=== PATIENT | female | born 1950 | race Caucasian/White ===

== ENCOUNTER 2021-01-06 21:13 | Emergency (ER) | payer MEDICARE ==
[~2021-01-06] VITALS: Ht 167.6 cm; Wt 60.3 kg
[~2021-01-06 21:13] MED LIST: ALEN70TA76 PO; ASPI-667 PO; CHOL100012 PEG; LEVO75TA6 PO; ROSU10TA2 PO; TRAM50TA PO; [UNRECOGNIZED DRUG - CODE] PO; [UNRECOGNIZED DRUG - CODE] PO
--- NOTE | 2021-01-06 22:10 | NUR ---
GRACIE AMBULATED TO ROOM. ALERT AND ORIENTED X3. C/O PAIN OF 1 TO RIGHT LOWER BACK. PT STATED, "I HAVE 3 KIDNEYS. 2 ON THE RIGHT AND 1 ON THE LEFT. I HAD RIGHT HIP SURGERY IN NOVEMBER THIS YEAR WITH DR. MCGUIRE. I FEEL LIKE I MIGHT BE GETTING A UTI AND DR. MCGUIRE DOESN'T WANT ME TO GET AN INFECTION OF ANY KIND. I TOOK A CIPRO 250MG AT 5:30PM TODAY. I ONLY HAD ONE."
[2021-01-06 22:14] VITALS: BP 112/51
[2021-01-06 22:33] LABS: BILIRUBIN,URINE NEGATIVE (NEGATIVE); UA COLOR YELLOW; UROBILINOGEN,URINE 0.2 E.U./dL (0.2)
--- NOTE | 2021-01-06 23:10 | ER.PDOC ---
General Chief Complaint: Flank Pain Stated Complaint: R FLANK PAIN,FATIGUE Time seen by MD: 22:30 Source: patient Exam Limitations: no limitations History of Present Illness Initial Comments right pelvic pain Timing/Duration: this morning Severity/Quality: mild, burning Location of Pain: pelvic pain, low back pain Associated Symptoms: denies symptoms Prior symptoms/Treatment: Similar symptoms previous (history of pelvic kidney with recurrent UTI's) Allergies: Coded Allergies: Penicillins (Verified Allergy, Unknown, Rash, 11/03/20) THIS REACTION WAS IN 2ND GRADE. PT HAS HAD ROCEPHIN WITHOUT REACTION. Home Meds Reported Medications Cholecalciferol (Vitamin D3) (Vitamin D3) 25 Mcg (1000 Unit) Capsule, 1 CAP PEG DAILY24 11/03/20 Ascorbic Acid/Multivit-Min (Emergen-C Immune Plus Packet) 1,000 Mg Effpowdpkt, 1000 MG PO DAILY24, TABLET 11/03/20 Multivitamin (MULTIPLE VITAMINS) 1 Each Tablet, 1 TAB PO QD for 30 Days, #30 TAB 0 Refills 11/03/20 Tramadol Hcl (TRAMADOL HCL) 50 Mg Tablet, 1 TAB PO BID PRN for PAIN 4 - 6, #60 TAB 11/03/20 Alendronate Sodium (ALENDRONATE SODIUM) 70 Mg Tablet, 70 MG PO Q7D, TAB 11/03/20 Rosuvastatin 10MG (CRESTOR 10MG) 10 Mg Tablet, 0.5 TAB PO HS, #30 TAB 5 Refills 11/03/20 Levothyroxine Sodium (LEVOTHYROXINE SODIUM) 75 Mcg Tablet, 75 MCG PO DAILY, TABLET 02/10/17 Past Medical History Medical History: high cholesterol, thyroid disease Surgical History: hip Family History Significant Family History: no pertinent family hx Social History Smoking: non-smoker Alcohol Use: none Drug Use: none Review of Systems Constitutional: denies fever EENTM: denies eye pain, denies ear discharge Respiratory: denies cough, denies shortness of breath Cardiovascular: denies chest pain Gastrointestinal: abdominal pain (right plevic pain typical of her usual UTI pain) Genitourinary: burning, frequency, flank pain; denies hematuria Musculoskeletal: back pain (right lower back) Skin: rash Hematologic/Lymphatic: denies easy bruising All Other Systems: Reviewed and Negative Physical Exam General Appearance: No Apparent Distress, WD/WN EENT: eyes nml inspection, nml ENT inspection, pharynx nml Neck: nml inspection, non-tender Cardiovascular/Respiratory: Regular Rate, Rhythm, No M/R/G, Normal Peripheral Pulses, No JVD, Normal Breath Sounds, No Respiratory Distress Abdomen: Normal Bowel Sounds, Non Tender, Soft, No Organomegaly Back: nml inspection Extremities: Normal Range of Motion, Non-Tender, Normal Inspection, No Pedal Edema, No Calf Tenderness, Normal Capillary Refill 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, No Motor/Sensory Deficits, Alert, Normal Mood/Affect, Oriented x 3 Skin: Normal Color, Warm/Dry Results/Orders Results/Orders Orders - ANGEL GRAHAM MD Urinalysis (01/06/21 22:25) Vital Signs Date Time Temp Pulse Resp B/P (MAP) Pulse Ox O2 Delivery O2 Flow Rate FiO2 01/06/21 23:11 78 18 108/62 (77) 97 Room Air 01/06/21 22:14 98.2 82 18 01/06/21 22:14 98.2 82 18 95 01/06/21 22:14 98.2 82 18 112/51 (71) 95 Room Air Laboratory Tests Test 01/06/21 21:25 Urine Collection Type RANDOM Urine Color YELLOW Urine Appearance CLEAR Urine Bilirubin NEGATIVE (NEGATIVE) Urine Ketones NEGATIVE (NEGATIVE) Urine Specific [place] 1.010 (1.005-1.030) Urine pH 6.5 (4.5-8.0) Urine Protein NEGATIVE (NEGATIVE) Urine Urobilinogen 0.2 E.U./dL (0.2) Urine Nitrate NEGATIVE (NEGATIVE) Urine Leukocyte Esterase NEGATIVE (NEGATIVE) Urine Glucose (Auto)(UA) NEGATIVE (NEGATIVE) Urine Blood NEGATIVE (NEGATIVE) Progress Progress UA negative for leukocytes or nitrites here. She states her dip at home was positive. Since she is having symptoms, will write RX for her usual ciprofloxacin and have her follow up with PCM. ER DEPART Departure Time of Disposition: 23:06 Disposition: 01 HOME / SELF CARE / HOMELESS Impression: Primary Impression: Acute cystitis Condition: Stable Referrals: EDWIN HAWKINS MD (PCP) PRIMARY CARE PROVIDER Additional Instructions: Return immediately if worse pain, vomiting, fever. Drink lots of fluids. Ciprofloxacin as prescribed. Pyridium over the counter as needed for urinary discomfort. Follow up PCP 2-3 days. Duration or Time Spent with Pa: 20 min Problem Qualifiers Primary Impression: Acute cystitis Hematuria presence: without hematuria Qualified Codes: N30.00 - Acute cystitis without hematuria ANGEL GRAHAM MD Jan 06, 2021 23:10
[2021-01-06 23:11] VITALS: BP 108/62
== END 2021-01-06 23:15 | disposition home or self-care (01) ==
LOC: ER 21:13
DX: N30.00 Acute cystitis without hematuria (principal); E78.00 Pure hypercholesterolemia, unspecified; Z79.899 Other long term (current) drug therapy; Z88.0 Allergy status to penicillin; Z88.1 Allergy status to other antibiotic agents
CPT/HCPCS: 81003; 99283

== ENCOUNTER → 2021-05-16 | Outpatient (CLI) | payer MEDICARE | END | disposition home or self-care (01) | LOC: LAB 08:57 | PROVIDERS: ATTEND Internal Medicine Cardiovascular Disease | DX: E78.2 Mixed hyperlipidemia (principal) | CPT/HCPCS: 36415; 80061; 80076 ==

== ENCOUNTER → 2022-01-01 | Outpatient (CLI) | payer MEDICARE ==
--- NOTE | 2022-01-01 09:13 | DIREP ---
PROCEDURE:US ABDOMEN LIMITED (SINGLE ORGAN - QUAD) COMPARISON:[facility], CT, CT ABD/PELVIS W/ CONTRAST, 08/29/2020, 12:24 PM. INDICATIONS:ABDOMINAL PAIN, RUQ TECHNIQUE:High resolution sonographic examination was performed of the abdomen. FINDINGS: PANCREAS:Visualized portions of the pancreatic head and body appear unremarkable. The pancreatic tail is obscured by bowel gas shadowing. LIVER:Increased hepatic echotexture consistent with hepatic steatosis. No focal hepatic lesion is identified. Hepatopetal flow in the portal vein. GALLBLADDER:Normal appearing gallbladder without evidence for gallbladder wall thickening or pericholecystic fluid. BILIARY:There is no biliary ductal dilatation. RIGHT KIDNEY:Normal. No hydronephrosis. Duplex-collecting system. OTHER:Negative. No ascites is identified. CBD:0.4 cm GALLBLADDER WALL: 0.2 cm RIGHT KIDNEY: 9.4 x 4.0 x 3.8 cm. CONCLUSION:1. Hepatic steatosis. 2. No acute abnormality noted. 3. Duplicated right renal collecting system. Dictated by: [facility] Physician on 01/01/2022 at 08:58 AM quoc
== END | disposition home or self-care (01) ==
LOC: RAD 07:48
PROVIDERS: ATTEND Internal Medicine Gastroenterology
DX: K76.0 Fatty (change of) liver, not elsewhere classified (principal); R10.11 Right upper quadrant pain; Z86.010 Personal history of colon polyps
CPT/HCPCS: 76705

== ENCOUNTER 2022-06-04 09:42 | Emergency (ER) | payer MEDICARE ==
[~2022-06-04] VITALS: Ht 165.1 cm; Wt 62.6 kg
[2022-06-04 09:57] VITALS: BP 128/80
--- NOTE | 2022-06-04 10:01 | ER.PDOC ---
General Chief Complaint: Requesting Medical Care Stated Complaint: EARACHE/ST/COUGH/CONGESTION Time seen by MD: 09:58 Source: patient Exam Limitations: no limitations History of Present Illness Initial Comments 72 yo F, fully vaccinated against influenza and covid including bivalent booster, has URI symptoms and a sore throat for the past several days. Exposed to Covid in April, caught it, and this resolved without particularly concerning symptoms or sequelae. Has tested herself and her multiple times at home, last negative 06/01/2022. In the intervening days has developed a sore throat and low grade cough, also some upper R back pain with coughing. Timing/Duration: gradual Severity: mild, moderate Associated Symptoms: sore throat, cough Prior symptoms/Treatment: Similar symptoms previous Allergies: Coded Allergies: Penicillins (Verified Allergy, Unknown, Rash, 11/03/20) THIS REACTION WAS IN 2ND GRADE. PT HAS HAD ROCEPHIN WITHOUT REACTION. Home Meds Reported Medications Cholecalciferol (Vitamin D3) (Vitamin D3) 25 Mcg (1000 Unit) Capsule, 1 CAP PEG DAILY24 11/03/20 Ascorbic Acid/Multivit-Min (Emergen-C Immune Plus Packet) 1,000 Mg Effpowdpkt, 1000 MG PO DAILY24, TABLET 11/03/20 Multivitamin (MULTIPLE VITAMINS) 1 Each Tablet, 1 TAB PO QD for 30 Days, #30 TAB 0 Refills 11/03/20 Tramadol Hcl (TRAMADOL HCL) 50 Mg Tablet, 1 TAB PO BID PRN for PAIN 4 - 6, #60 TAB 11/03/20 Alendronate Sodium (ALENDRONATE SODIUM) 70 Mg Tablet, 70 MG PO Q7D, TAB 11/03/20 Rosuvastatin 10MG (CRESTOR 10MG) 10 Mg Tablet, 0.5 TAB PO HS, #30 TAB 5 Refills 11/03/20 Levothyroxine Sodium (LEVOTHYROXINE SODIUM) 75 Mcg Tablet, 75 MCG PO DAILY, TABLET 02/10/17 Constitutional: malaise EENTM: no symptoms reported Respiratory: see HPI, cough Cardiovascular: see HPI, chest pain (more posterior chest wall pain really, R mid to upper back) Gastrointestinal: no symptoms reported Genitourinary: no symptoms reported Musculoskeletal: see HPI Skin: no symptoms reported Psychiatric/Neurological: no symptoms reported Endocrine: no symptoms reported All Other Systems: Reviewed and Negative Past Medical History Medical History: high cholesterol, thyroid disease Surgical History: hip Family History Significant Family History: no pertinent family hx Social History Smoking: non-smoker Drug Use: none Reviewed Nursing Reviewed: Vital Signs, Abn. Noted, Nursing Assessment Physical Exam General Appearance: alert, no distress Eye: eyes nml inspection Ear: ear nml (grossly wnl) Throat: airway nml Neck: supple Respiratory: breath sounds nml Abdomen: non-tender CVS: reg rate & rhythm, heart sounds nml Skin: color nml, no rash Extremities: non-tender NEURO/PSYCH: oriented x 3, motor nml, sensation nml, mood/affect nml Results/Orders Results/Orders Orders - KALEB ROSE MD Cbc With Auto Diff (06/04/22 09:58) Basic Metabolic Panel (06/04/22 09:58) Xr Chest 2v (06/04/22 09:58) Influenza A&B (06/04/22 09:58) Covid19 Antigen Lavonne Jennifer (06/04/22 09:58) PT (06/04/22 10:11) Partial Thromboplastin Time. (06/04/22 10:11) D-Dimer (06/04/22 10:11) Strep Screen (06/04/22 10:11) Cefdinir (Omnicef) (06/04/22 10:40) Cta Chest (06/04/22 10:56) Doxycycline Hyclate (Vibramycin) (06/04/22 11:48) Doxycycline Hyclate (Vibramycin) (06/04/22 11:59) Vital Signs Date Time Temp Pulse Resp B/P (MAP) Pulse Ox O2 Delivery O2 Flow Rate FiO2 06/04/22 09:57 99.3 71 18 06/04/22 09:57 99.3 71 18 128/80 (96) 100 Room Air* 0 21 06/04/22 09:57 99.3 71 18 Administered Medications Medications (Trade) Dose Ordered Sig/Mckenzie Route PRN Reason Start Time Stop Time Status Last Admin Dose Admin Cefdinir (Omnicef) 300 mg STAT STAT PO 06/04/22 10:40 06/04/22 11:20 DC 06/04/22 10:49 300 MG Doxycycline Hyclate (Vibramycin) 100 mg STAT STAT PO 06/04/22 11:48 06/04/22 11:49 DC 06/04/22 12:14 100 MG Laboratory Tests Test 06/04/22 10:09 06/04/22 10:10 White Blood Count 13.8 10^3/uL (4.5-11.0) H Red Blood Count 4.86 10^6/uL (4.00-5.20) Hemoglobin 13.0 g/dL (12.0-15.0) Hematocrit 41.0 % (36.0-46.0) Mean Corpuscular Volume 84.4 fL (78-100) Mean Corpuscular Hemoglobin 26.7 pg (26-34) Mean Corpuscular Hemoglobin Concent 31.7 g/dL (33-36.5) L Red Cell Distribution Width 14.5 % (11.5-14.5) Platelet Count 304 10^3/uL (150-400) Mean Platelet Volume 8.2 fL (7.8-11.0) Neutrophils (%) (Auto) 84.5 % (41.0-85.0) Lymphocytes (%) (Auto) 9.4 % (24.0-44.0) L Monocytes (%) (Auto) 4.7 % (5.0-12.0) L Neutrophils # (Auto) 11.7 10^3/uL (1.8-7.7) H Lymphocytes # (Auto) 1.30 10^3/uL1 (1.0-4.8) Monocytes # (Auto) 0.7 10^3/uL (0.3-0.8) Absolute Immature Granulocyte (auto 0.03 10^3 u/L (0-2) Absolute Eosinophils (auto) 0.1 10^3/uL (0.0-0.2) Immature Granulocytes % 0.20 % (0.00-0.50) Eosinophils % 0.9 % (0.0-5.0) Basophils % 0.3 % (0.0-0.2) H Basophils # 0.0 10^3/uL (0.0-0.1) Prothrombin Time 11.1 SEC (9.1-11.5) Prothrombin Time INR (Non-Therap) 1.1 Activated Partial Thromboplast Time 27.5 SEC (22.5-33.1) D-Dimer 1.54 mg/L (0.19-0.49) *H Sodium Level 136 mmol/L (132-145) Potassium Level 3.6 mmol/L (3.6-5.2) Chloride Level 100.0 mmol/L (96-109) Carbon Dioxide Level 25.3 mmol/L (20.0-32) Glucose Level 123 mg/dL (70-110) H Blood Urea Nitrogen 8 mg/dL (7-18) Creatinine 0.87 mg/dL (0.59-1.40) Calcium Level 8.7 mg/dL (8.4-10.5) Anion Gap 14.3 Estimated GFR () 77.4 (>/=60) Est GFR (CKD-EPI)(Non-Afr Tristanian) 64.0 (>/=60) BUN/Creatinine Ratio 9.0 Influenza Type A Antigen NEGATIVE (NEG) Influenza Type B Antigen NEGATIVE (NEG) SARS-CoV-2 Antigen (Rapid) NEGATIVE (NEGATIVE) Group A Streptococcus Screen NEGATIVE (NEGATIVE) Progress Progress Pneumonia is a little larger on CT than I noted on CXR. I had been minded to give cefdinir; now I am more inclined to add doxycycline as well. It's a mass. I have spoken with pt at some length about need for biopsy and proper followup without unnecessary delay. EKG/XRAY/CT/US XRAY: chest XRAY Comments: RUL pneumonia CT Comments: see results ER DEPART Departure Time of Disposition: 12:44 Disposition: 01 HOME / SELF CARE / HOMELESS Impression: Primary Impression: Mass of right lung Additional Impression: Mass of upper lobe of right lung Condition: Stable Patient Instructions: Lung Cancer Referrals: EDWIN HAWKINS MD (PCP) PRIMARY CARE PROVIDER Additional Instructions: While it is not certain, we are concerned that this lung mass may be cancerous; at the very least, it needs to be biopsied as soon as possible either by an INTERVENTIONAL BUSINESS SOLUTIONS ARCHITECT or THORACIC SURGEON. That information will be essential to further guide your care. There is a small amount of pneumonia as well, for which we have prescribed antibiotics. Contact your primary care provider tomorrow to obtain proper referrals to the necessary specialists. If you have any sudden worsening of your condition return to the ER for further assistance; we are available at all times. Duration or Time Spent with Pa: 30 min Problem Qualifiers KALEB ROSE MD Jun 04, 2022 10:01
[2022-06-04 10:17] LABS: BASOPHIL % 0.3 % (0.0-0.2); EOSINOPHIL # 0.1 10^3/uL (0.0-0.2); EOSINOPHIL % 0.9 % (0.0-5.0); LYMPHOCYTES % 9.4 % (24.0-44.0); MEAN CORP HGB 26.7 pg (26-34); MONOCYTES # 0.7 10^3/uL (0.3-0.8); MONOCYTES % 4.7 % (5.0-12.0); NEUTROPHIL # 11.7 10^3/uL (1.8-7.7); NEUTROPHILS % 84.5 % (41.0-85.0); PLATELET COUNT 304 10^3/uL (150-400); RED CELL DISTRIBUTION WIDTH 14.5 % (11.5-14.5)
--- NOTE | 2022-06-04 10:36 | DIREP ---
PROCEDURE:CHEST 2 VIEWS COMPARISON:[facility], CT, CT ABD/PELVIS W/ CONTRAST, 08/29/2020, 12:24 PM. [facility], CR, XRAY CHEST 2 VWS, 01/30/2016, 01:48 PM. INDICATIONS:cough FINDINGS: LUNGS/PLEURA:Consolidating infiltrate in the medial right upper lobe. No effusions. VASCULATURE:Normal. Unremarkable pulmonary vasculature. CARDIAC:Normal. No cardiac silhouette abnormality or cardiomegaly. MEDIASTINUM:Normal. No visible mass or adenopathy. BONES:Normal. No fracture or visible bony lesion. OTHER:Negative. CONCLUSION:Right upper lobe pneumonia. Follow-up to complete clearing recommended to rule out an underlying mass. Dictated by: Hernan Pearson M.D. on 06/04/2022 at 10:32 AM
[2022-06-04] MEDS ORDERED: OMNICEF PO STA (10:40)
--- NOTE | 2022-06-04 10:44 | NUR ---
CRITICAL LAB D-DIMER 1.54, DOCTOR NOTIFIED
[2022-06-04 10:53] LABS: CARBON DIOXIDE 25.3 mmol/L (20.0-32)
[2022-06-04] MEDS ORDERED: VIBRAMYCIN PO STA (11:48)
[2022-06-04] MEDS ORDERED: VIBRAMYCIN ONE (11:59)
--- NOTE | 2022-06-04 12:21 | DIREP ---
PROCEDURE:CT PULMONARY ANGIOGRAM TECHNIQUE:Following the intravenous administration of contrast material, axial cuts were obtained through the chest. Sagittal and coronal MIP post-processing reconstructions are provided. Satisfactory pulmonary arterial contrast opacification was achieved. The images were viewed at lung and soft tissue settings. COMPARISON:[facility], CR, XRAY CHEST 2 VWS, 01/30/2016, 01:48 PM. [facility], CT, CT ABD/PELVIS W/ CONTRAST, 08/29/2020, 12:24 PM. [facility], CR, XRAY CHEST 2 VWS, 06/04/2022, 10:16 AM. INDICATIONS:chest pain, infiltrate, elevated d-dimer, recent Covid FINDINGS: PULMONARY ARTERIES:Patent. No pulmonary embolus. LUNGS/PLEURA:There is a large irregular mass in the posteromedial right upper lobe, measuring at least 7.4 x 6.3 x 5.6 cm (image 37 series 80 7 x 4 and image 103, series 8). This mass abuts the posteromedial right pleural surface, right major fissure, and is confluent with presumed enlarged right hilar lymph nodes. Ground-glass interstitial opacities within the right lung apex and surrounding the right upper lobe mass may be secondary to postobstructive atelectasis/pneumonia or lymphangitic spread of neoplasm. There is a 6 mm subpleural nodule at the periphery of the anterior/superior right upper lobe (image 76, series 9). 4 mm noncalcified nodule in the anterior left lower lobe (image 36, series 9). Few small pleural-based nodules are seen within the posterior right lower lobe, the largest 4 mm (image 31, series 9). Trace pleural fluid adjacent to the right upper lobe mass. No left pleural effusion. No pneumothorax. CARDIAC:Heart size is normal. Mild calcified plaque in the LAD and RCA. No pericardial effusion. THORACIC AORTA:Minimal calcified plaque in the thoracic aorta. No aneurysm. MEDIASTINUM:Mildly enlarged right paratracheal lymph node measures 1.6 x 1.5 cm (104, series 8). Mildly prominent precarinal node measures 1.3 x 1.1 cm (image 95, series 8). Mildly prominent subcarinal node measures 1.1 x 0.8 cm (image 86, series 8). Presumed enlarged right hilar lymph nodes are confluent with the right upper lobe mass. THYROID:Normal. LIMITED ABDOMEN:Minimal calcified plaque in the abdominal aorta. Otherwise unremarkable. BONES:Mild degenerative changes involving the thoracic spine. No acute abnormality or suspicious osseous lesion. OTHER:No additional findings. CONCLUSION: 1. Large irregular mass in the posteromedial right upper lobe, measuring 7.4 cm, which is confluent with presumed enlarged right hilar lymph nodes. This mass abuts the posteromedial pleural surface, as well as the right major fissure. Findings are highly suspicious for primary pulmonary malignancy. 2. Ground-glass interstitial opacities adjacent to the mass and within the right lung apex, which may be secondary to postobstructive atelectasis/pneumonia or lymphangitic spread of neoplasm. 3. A few small pulmonary nodules seen within the right lung apex, anterior left lower lobe, and in the posterior right lower lobe. Continued follow-up is recommended. 4. Mildly enlarged right paratracheal lymph node with additional mildly prominent precarinal and subcarinal lymph nodes, suspicious for local eric metastases. 5. No pulmonary embolus. 6. Additional findings, as above. Dictated by: Ronal Falcon MD on 06/04/2022 at 12:04 PM
[2022-06-04 12:51] VITALS: BP 120/80
== END 2022-06-04 12:58 | disposition home or self-care (01) ==
LOC: ER 09:42
DX: C34.11 Malignant neoplasm of upper lobe, right bronchus or lung (principal); Z20.822 Contact with and (suspected) exposure to COVID-19; E07.9 Disorder of thyroid, unspecified; E78.00 Pure hypercholesterolemia, unspecified; Z88.0 Allergy status to penicillin; Z88.1 Allergy status to other antibiotic agents; Z28.39 Other underimmunization status
CPT/HCPCS: 99285; 71275; 71046; 87426; 85025; 36415; 80048; 85379; 87070; 87880; 87804 ×2; 85610; 85730; Q9965